=== PATIENT | male | born 1965 | race African-American/Black ===

== ENCOUNTER 2021-04-04 13:20 | Outpatient (RCR) | payer OTHER ==
[2021-04-04 17:21] LABS: BASOPHILS % 0.6 % (0.0-1.0); EOSINOPHILS # (AUTO) 0.2 (0.0-0.4); EOSINOPHILS % 3.7 % (0.0-6.0); HEMATOCRIT 43.8 % (38.2-49.6); HEMOGLOBIN 12.6 g/dL (14.0-18.0); LYMPHOCYTES % 18.2 % (18.0-39.1); MEAN CORPUSCULAR HEMOGLOBIN 24.6 pg (28-32); MEAN CORPUSCULAR HGB CONC 28.8 g/dL (31-35); MEAN CORPUSCULAR VOLUME 85.5 fL (81-99); MONOCYTES # (AUTO) 0.4 (0.2-0.8); MONOCYTES % 7.8 % (4.4-11.3); NEUTROPHILS # (AUTO) 3.7 (2.1-6.9); NEUTROPHILS % 69.3 % (38.7-80.0); PLATELET COUNT 229 x10e3/uL (140-360); RED BLOOD COUNT 5.12 x10e6/uL (4.3-5.7)
[2021-04-04 17:40] LABS: ALBUMIN 3.2 g/dL (3.5-5.0); ALBUMIN/GLOBULIN RATIO 0.7 (0.8-2.0); ANION GAP 14.4 mmol/L (8-16); CREATININE, SERUM 1.23 mg/dL (0.72-1.25); POTASSIUM 4.4 mmol/L (3.5-5.1)
== END 2021-04-20 ==
LOC: EEVIPCON 13:20 → WCC 13:20
PROVIDERS: ATTEND Podiatrist
DX: E11.621 Type 2 diabetes mellitus with foot ulcer (principal); E11.40 Type 2 diabetes mellitus with diabetic neuropathy, unspecified; E11.65 Type 2 diabetes mellitus with hyperglycemia; E11.622 Type 2 diabetes mellitus with other skin ulcer; L97.411 Non-pressure chronic ulcer of right heel and midfoot limited to breakdown of skin; R60.0 Localized edema; I10 Essential (primary) hypertension; I50.9 Heart failure, unspecified; G90.09 Other idiopathic peripheral autonomic neuropathy; G47.39 Other sleep apnea
CPT/HCPCS: 36415; 80053; 83036; 84134; 85025; 85651; 86141; 87071; 87075; 87186; 87205

== ENCOUNTER 2021-05-02 13:45 | Outpatient (RCR) | payer OTHER ==
[~2021-05-02 13:45] MED LIST: GENTAMICIN SULFATE 15 GM CR TP ONE; LIDOCAINE VISC 2% SOLN 15 ML UDC ONE
[2021-05-16] MEDS ORDERED: LIDOCAINE/PRILOCAINE 2.5-2.5% KIT ONE (12:53)
== END 2021-05-21 ==
LOC: WCC 13:45
PROVIDERS: ATTEND Podiatrist
DX: E11.621 Type 2 diabetes mellitus with foot ulcer (principal); E11.40 Type 2 diabetes mellitus with diabetic neuropathy, unspecified; E11.65 Type 2 diabetes mellitus with hyperglycemia; E11.622 Type 2 diabetes mellitus with other skin ulcer; L97.411 Non-pressure chronic ulcer of right heel and midfoot limited to breakdown of skin; R60.0 Localized edema; I10 Essential (primary) hypertension; G90.09 Other idiopathic peripheral autonomic neuropathy; I50.9 Heart failure, unspecified; G47.39 Other sleep apnea

== ENCOUNTER → 2021-05-30 | Outpatient (CLI) | payer OTHER | LOC: CARD 09:55 | PROVIDERS: ATTEND Podiatrist | DX: E11.621 Type 2 diabetes mellitus with foot ulcer (principal); L97.411 Non-pressure chronic ulcer of right heel and midfoot limited to breakdown of skin; I73.9 Peripheral vascular disease, unspecified | CPT/HCPCS: 93922; 93925 ==

== ENCOUNTER 2021-06-06 14:10 | Outpatient (RCR) | payer OTHER ==
[~2021-06-06 14:10] MED LIST changes: +COLLAGENASE OINTMENT 30 GM TUBE ONE; -GENTAMICIN SULFATE 15 GM CR TP ONE; +MINERAL OIL/PETROLAT/GLYCERI 6OZ BTL ONE
== END 2021-06-18 ==
LOC: WCC 14:10
PROVIDERS: ATTEND Podiatrist
DX: E11.621 Type 2 diabetes mellitus with foot ulcer (principal); E11.40 Type 2 diabetes mellitus with diabetic neuropathy, unspecified; E11.65 Type 2 diabetes mellitus with hyperglycemia; E11.622 Type 2 diabetes mellitus with other skin ulcer; J12.81 Pneumonia due to SARS-associated coronavirus; L97.411 Non-pressure chronic ulcer of right heel and midfoot limited to breakdown of skin; R60.0 Localized edema; I10 Essential (primary) hypertension; I50.9 Heart failure, unspecified; G90.09 Other idiopathic peripheral autonomic neuropathy; G47.39 Other sleep apnea; B96.89 Other specified bacterial agents as the cause of diseases classified elsewhere; Z86.16 Personal history of COVID-19

== ENCOUNTER 2021-07-18 15:12 | Outpatient (RCR) | payer OTHER ==
[~2021-07-18 15:12] MED LIST changes: +GENTAMICIN SULFATE 15 GM CR TP ONE; -LIDOCAINE VISC 2% SOLN 15 ML UDC ONE; +MUPIROCIN 2% OINT 22 GM TUBE ONE
== END 2021-07-19 ==
LOC: WCC 15:12
PROVIDERS: ATTEND Podiatrist
DX: E11.621 Type 2 diabetes mellitus with foot ulcer (principal); E11.40 Type 2 diabetes mellitus with diabetic neuropathy, unspecified; E11.65 Type 2 diabetes mellitus with hyperglycemia; E11.622 Type 2 diabetes mellitus with other skin ulcer; J12.81 Pneumonia due to SARS-associated coronavirus; L97.412 Non-pressure chronic ulcer of right heel and midfoot with fat layer exposed; R60.0 Localized edema; I10 Essential (primary) hypertension; I50.9 Heart failure, unspecified; G47.39 Other sleep apnea; G90.09 Other idiopathic peripheral autonomic neuropathy; Z86.16 Personal history of COVID-19

== ENCOUNTER → 2021-07-31 | Outpatient (CLI) | payer OTHER | LOC: NM 09:46 | PROVIDERS: ATTEND Podiatrist | DX: E11.621 Type 2 diabetes mellitus with foot ulcer (principal); L97.411 Non-pressure chronic ulcer of right heel and midfoot limited to breakdown of skin | CPT/HCPCS: 78315; A9503; A9521; A9570 ==

== ENCOUNTER 2021-10-17 13:46 | Outpatient (RCR) | payer OTHER ==
[~2021-10-17 13:46] MED LIST changes: +AMMONIUM LACTATE 12% LOTION 225GM BTL ONE; -COLLAGENASE OINTMENT 30 GM TUBE ONE; -GENTAMICIN SULFATE 15 GM CR TP ONE; +LIDOCAINE VISC 2% SOLN 15 ML UDC ONE; +MINERAL OIL/PETROLAT/GLYCERI 2OZ CRM ONE; -MUPIROCIN 2% OINT 22 GM TUBE ONE
== END 2021-10-18 ==
LOC: WCC 13:46
PROVIDERS: ATTEND Podiatrist
DX: E11.621 Type 2 diabetes mellitus with foot ulcer (principal); E11.40 Type 2 diabetes mellitus with diabetic neuropathy, unspecified; E11.65 Type 2 diabetes mellitus with hyperglycemia; E11.622 Type 2 diabetes mellitus with other skin ulcer; L89.622 Pressure ulcer of left heel, stage 2; L97.412 Non-pressure chronic ulcer of right heel and midfoot with fat layer exposed; R60.0 Localized edema; G90.09 Other idiopathic peripheral autonomic neuropathy; J12.81 Pneumonia due to SARS-associated coronavirus; I50.9 Heart failure, unspecified; N18.9 Chronic kidney disease, unspecified; I10 Essential (primary) hypertension; G47.39 Other sleep apnea; R26.81 Unsteadiness on feet; Z86.16 Personal history of COVID-19
CPT/HCPCS: 11042 ×3; 15004; 15275 ×2; 83036; 84134; 97597 ×2; 99213 ×4; Q4101 ×2

== ENCOUNTER 2021-11-14 12:43 | Outpatient (RCR) | payer OTHER ==
[~2021-11-14 12:43] MED LIST changes: -AMMONIUM LACTATE 12% LOTION 225GM BTL ONE; -MINERAL OIL/PETROLAT/GLYCERI 2OZ CRM ONE
[2021-11-14] MEDS ORDERED: LIDOCAINE VISC 2% SOLN 15 ML UDC ONE (12:53)
== END 2021-11-18 ==
LOC: WCC 12:43
PROVIDERS: ATTEND Podiatrist
DX: L89.622 Pressure ulcer of left heel, stage 2 (principal); E11.621 Type 2 diabetes mellitus with foot ulcer; E11.40 Type 2 diabetes mellitus with diabetic neuropathy, unspecified; E11.65 Type 2 diabetes mellitus with hyperglycemia; E11.622 Type 2 diabetes mellitus with other skin ulcer; J12.81 Pneumonia due to SARS-associated coronavirus; L97.412 Non-pressure chronic ulcer of right heel and midfoot with fat layer exposed; R60.0 Localized edema; N18.9 Chronic kidney disease, unspecified; I10 Essential (primary) hypertension; I50.9 Heart failure, unspecified; G90.09 Other idiopathic peripheral autonomic neuropathy; G47.39 Other sleep apnea; R26.81 Unsteadiness on feet; Z86.16 Personal history of COVID-19
CPT/HCPCS: 11042; 15275 ×4; 97597; 99213 ×4; Q4101 ×3; Q4160

== ENCOUNTER → 2021-12-19 | Outpatient (RCR) | payer OTHER ==
[~2021-12-19] MED LIST changes: +COLLAGENASE OINTMENT 30 GM TUBE ONE; +GENTAMICIN SULFATE 15 GM CR TP ONE
== END ==
LOC: WCC 11-21 13:33
PROVIDERS: ATTEND Podiatrist
DX: E11.621 Type 2 diabetes mellitus with foot ulcer (principal); E11.40 Type 2 diabetes mellitus with diabetic neuropathy, unspecified; E11.65 Type 2 diabetes mellitus with hyperglycemia; E11.622 Type 2 diabetes mellitus with other skin ulcer; L97.412 Non-pressure chronic ulcer of right heel and midfoot with fat layer exposed; R60.0 Localized edema; J12.81 Pneumonia due to SARS-associated coronavirus; N18.9 Chronic kidney disease, unspecified; I10 Essential (primary) hypertension; I50.9 Heart failure, unspecified; G47.39 Other sleep apnea; G90.09 Other idiopathic peripheral autonomic neuropathy; R26.81 Unsteadiness on feet; Z86.16 Personal history of COVID-19
CPT/HCPCS: 11042 ×3; 15275 ×3; 87071; 87075; 87186; 87205; 97597; 97602 ×2; 99213 ×5; Q4160 ×3

== ENCOUNTER 2022-01-16 14:53 | Outpatient (RCR) | payer OTHER ==
[~2022-01-16 14:53] MED LIST changes: -COLLAGENASE OINTMENT 30 GM TUBE ONE; -GENTAMICIN SULFATE 15 GM CR TP ONE; +MINERAL OIL/PETROLAT/GLYCERI 2OZ CRM ONE
== END 2022-01-18 ==
LOC: WCC 14:53
PROVIDERS: ATTEND Podiatrist
DX: E11.621 Type 2 diabetes mellitus with foot ulcer (principal); E11.40 Type 2 diabetes mellitus with diabetic neuropathy, unspecified; E11.65 Type 2 diabetes mellitus with hyperglycemia; E11.622 Type 2 diabetes mellitus with other skin ulcer; J12.81 Pneumonia due to SARS-associated coronavirus; L97.412 Non-pressure chronic ulcer of right heel and midfoot with fat layer exposed; R60.0 Localized edema; I50.9 Heart failure, unspecified; N18.9 Chronic kidney disease, unspecified; I10 Essential (primary) hypertension; G47.39 Other sleep apnea; G90.09 Other idiopathic peripheral autonomic neuropathy; R26.81 Unsteadiness on feet; Z86.16 Personal history of COVID-19
CPT/HCPCS: 11042 ×2; 15275 ×3; 99213 ×4; Q4101 ×2; Q4160

== ENCOUNTER 2022-02-15 11:52 | Outpatient (RCR) | payer OTHER ==
[~2022-02-15 11:52] MED LIST changes: -MINERAL OIL/PETROLAT/GLYCERI 2OZ CRM ONE
== END 2022-02-18 ==
LOC: WCC 11:52
PROVIDERS: ATTEND Internal Medicine Infectious Disease
DX: E11.621 Type 2 diabetes mellitus with foot ulcer (principal); E11.622 Type 2 diabetes mellitus with other skin ulcer; E11.40 Type 2 diabetes mellitus with diabetic neuropathy, unspecified; E11.65 Type 2 diabetes mellitus with hyperglycemia; L97.412 Non-pressure chronic ulcer of right heel and midfoot with fat layer exposed; R60.0 Localized edema; J12.81 Pneumonia due to SARS-associated coronavirus; N18.9 Chronic kidney disease, unspecified; I50.9 Heart failure, unspecified; I10 Essential (primary) hypertension; G47.39 Other sleep apnea; G90.09 Other idiopathic peripheral autonomic neuropathy; Z86.16 Personal history of COVID-19; R26.81 Unsteadiness on feet
CPT/HCPCS: 11042; 15275; 29581 ×3; 99203; 99213 ×2; Q4101

== ENCOUNTER 2022-03-08 14:30 | Outpatient (RCR) | payer OTHER | END 2022-03-20 | LOC: WCC 14:30 | PROVIDERS: ATTEND Internal Medicine Infectious Disease | DX: E11.621 Type 2 diabetes mellitus with foot ulcer (principal); E11.622 Type 2 diabetes mellitus with other skin ulcer; E11.40 Type 2 diabetes mellitus with diabetic neuropathy, unspecified; E11.65 Type 2 diabetes mellitus with hyperglycemia; J12.81 Pneumonia due to SARS-associated coronavirus; L97.412 Non-pressure chronic ulcer of right heel and midfoot with fat layer exposed; G90.09 Other idiopathic peripheral autonomic neuropathy; N18.9 Chronic kidney disease, unspecified; I50.9 Heart failure, unspecified; I10 Essential (primary) hypertension; G47.39 Other sleep apnea; R26.81 Unsteadiness on feet; Z86.16 Personal history of COVID-19 | CPT/HCPCS: 15275 ×2; 29581 ×2; 99212; 99213; Q4101 ×2 ==

== ENCOUNTER 2022-05-03 14:08 | Outpatient (RCR) | payer OTHER ==
[~2022-05-03 14:08] MED LIST changes: -LIDOCAINE VISC 2% SOLN 15 ML UDC ONE; +MINERAL OIL/PETROLAT/GLYCERI 2OZ CRM ONE
== END 2022-05-21 ==
LOC: WCC 14:08
PROVIDERS: ATTEND Internal Medicine Infectious Disease
DX: E11.40 Type 2 diabetes mellitus with diabetic neuropathy, unspecified (principal); E11.65 Type 2 diabetes mellitus with hyperglycemia; E11.621 Type 2 diabetes mellitus with foot ulcer; E11.622 Type 2 diabetes mellitus with other skin ulcer; I87.312 Chronic venous hypertension (idiopathic) with ulcer of left lower extremity; L97.412 Non-pressure chronic ulcer of right heel and midfoot with fat layer exposed; L97.821 Non-pressure chronic ulcer of other part of left lower leg limited to breakdown of skin; I87.2 Venous insufficiency (chronic) (peripheral); R60.0 Localized edema; J12.81 Pneumonia due to SARS-associated coronavirus; N18.9 Chronic kidney disease, unspecified; I10 Essential (primary) hypertension; I50.9 Heart failure, unspecified; G47.39 Other sleep apnea; G90.09 Other idiopathic peripheral autonomic neuropathy; R26.81 Unsteadiness on feet; Z86.16 Personal history of COVID-19